=== PATIENT | female | born 1985 | race Hispanic/Latino ===

== ENCOUNTER 2025-01-14 03:32 | Emergency (ER) | payer OTHER, SELFPAY ==
[2025-01-14 03:32] VITALS: BP 130/91; PULSE 70; RESP 18; TEMP 36.9; O2SAT 100; BMI 22.4
--- NOTE | 2025-01-14 04:01 | CT_ITS ---
PROCEDURE: ABDOMEN/PELVIS W IV CONT ONLY 01/14/2025 REASON FOR EXAM: ABDOMINAL PAIN TECHNIQUE: Procedure Code: CTABDPELIV Modality: CT Procedure: ABDOMEN/PELVIS W IV CONT ONLY Coronal and Sagittal reconstruction series were provided. CONTRAST: OMNIPAQUE 350 VOLUME: 100 mL One or more dose reduction techniques were used (e.g., Automated exposure control, adjustment of the mA and/or kV according to patient size, use of iterative reconstruction technique. RADIATION DOSE SUMMARY: CTDlvol: 8.36 mGy DLP: 405 mGycm COMPARISON: None. FINDINGS: Bilateral breast prostheses are noted. Diffuse thickening of the bladder, probably cystitis. Diffuse thickening of the stomach suggestive of gastritis. Mild thickening of the proximal small bowels, probably enteritis. Mild thickening of the rectosigmoid colon, probably underdistention/spasm. Subhepatic anterior calcified mesenteric lymph node measuring 1.2 cm. The visualized lung bases are unremarkable. Normal liver. Normal gallbladder and extrahepatic biliary system. Normal spleen. Normal pancreas. Normal bilateral adrenal glands. Normal size of the right kidney. There is no right renal mass. There are no right renal calculi. There is no right hydronephrosis. Normal visualized right ureter. Normal size of the left kidney. There is no left renal mass. There are no left renal calculi. There is no left hydronephrosis. Normal visualized left ureter. The appendix is not visualized. There is no demonstrated peritoneal fluid. Normal abdominal aorta. Normal inferior vena cava. Normal retroperitoneum. There is no pelvic mass lesion or lymphadenopathy. There is no pelvic fluid. Normal abdominal wall. Normal osseous structures. CT/Abdomen/Pelvis W IV Cont ONLY IMPRESSION: Bilateral breast prostheses are noted. Diffuse thickening of the bladder, probably cystitis. Diffuse thickening of the stomach suggestive of gastritis. Mild thickening of the proximal small bowels, probably enteritis. Mild thickening of the rectosigmoid colon, probably underdistention/spasm. Subhepatic anterior calcified mesenteric lymph node measuring 1.2 cm. Reading Location: [place] [id number]
[2025-01-14] MEDS: 0.9% Normal Saline (1000mL) 1,000 ML 999 ML IV (04:10)
[2025-01-14 04:11] LABS: Hematocrit 42.4 % (37-47); Hemoglobin 14.6 g/dL (12.0-15.0); Immature Granulocytes Count 0.030 X10^3/uL (0.0-0.0); Mean Corp Hgb Conc 34.4 g/dL (32-36); Mean Corpuscular Volume 89.8 fL (81-99); Mean Platelet Vol. 9.9 fl (6.2-12.0); NRBC Flagged by Analyzer 0 % (0-5); POSITIVE MORPHOLOGY YES; Platelet Count 331 K/mm3 (150-450); RBC Distribution Width CV 12.5 % (11.6-14.6); RBC Distribution Width SD 41.6 fl (35.1-43.9); Red Blood Count 4.72 M/mm3 (4.2-5.4); White Blood Count 10.9 K/mm3 (4.4-11.0)
[2025-01-14 04:19] LABS: Differential Indicated SCAN CRITERIA MET
[2025-01-14 04:28] LABS: AST(SGOT) 18 U/L (<=31); Alanine Aminotransfer ALT/SGPT 9 U/L (<=34); Albumin, Serum 4.2 g/dL (3.5-5.0); Alkaline Phosphatase 51 U/L (35-104); Anion Gap 15 (5-15); BUN 7 mg/dL (4-19); BUN/Creat Ratio 9.6 RATIO (10-20); Calcium,Total 9.2 mg/dL (7.6-11.0); Carbon Dioxide 20.0 mmol/L (21.0-32.0); Chloride 103 mmol/L (98-108); Estimated Creatinine Clearance 92.65 ml/min (50-250); Globulin 2.7 g/dL (2.2-4.2); Glucose 116 mg/dL (70-99); Lipase 18 U/L (13-75); Potassium 3.5 mmol/L (3.3-5.1)
[2025-01-14 04:51] LABS: Internal QC Validated? YES +Cl - CLEAR BKGD; Pregnancy, Serum, hCG Quali. NEGATIVE Negative
[2025-01-14 05:08] LABS: Mucous, Urine 0 SEEN /hpf (<or=2+); Red Blood Cells-Urine 0 SEEN /hpf (0-5); Squamous Epithelial Cells - UA 0 SEEN /hpf (5-10)
[2025-01-14 05:22] LABS: Glucose, Dipstick Normal (Normal); Ketone-Dipstick Negative (Negative); Leukocyte Esterase-Dipstick Negative /ul (Negative); Nitrite-Dipstick Negative (Negative); Occult Blood-Urine 25 /ul (Negative); Protein-Dipstick Negative (Negative); Specific Gravity, Urine 1.010 (1.002-1.030); Urine Bilirubin Dipstick Negative (Negative)
[2025-01-14 05:37] VITALS: BP 120/79; PULSE 66; RESP 16; O2SAT 100
[2025-01-14 05:46] LABS: Color, Urine Yellow (Yellow)
[2025-01-14 06:28] VITALS: BP 140/82; PULSE 62; RESP 16; TEMP 36.7; O2SAT 100
--- NOTE | 2025-01-14 06:31 | EDS_ITS ---
HPI History of Present Illness Chief Complaint: Abd Pain Narrative Narrative: Patient was seen and examined after presenting to ED for abdominal pain in center of her upper abdomen she feels nauseous denies having any fevers or chills. PFSH PFSH Medical History no medical history Home Medications ?Medication ?Instructions ?Recorded ?Last Taken ?Type bisacodyl 5 mg tablet,delayed 5 mg PO QHS 2 days #4 ta bs 01/14/25 Unknown Rx release (Dulcolax (bisacodyl)) liothyronine 5 mcg tablet (Cytomel) 15 mcg PO DAILY Unknown History norgestimate 0.25 mg-ethinyl 1 tab PO DAILY 01/14/25 U nknown History estradiol 0.035 mg tablet (Estarylla) polyethylene glycol 3350 17 17 g PO DAILY #238 grams 1 03/17/24 Unknown Rx gram/dose oral powder (Miralax) Allergy/AdvReac Type Severity Reaction Status Date / Time No Known Allergies Allergy Verified 01/14/25 03:36 Social History Smoking Status: Never smoker ROS ROS ED ROS Narrative Pertinent Positives: Nausea upper abdominal pain she has one of her ovaries removed Pertinent Negatives: Fevers diarrhea black or bloody stool, chest pain pressure shortness of breath urinary symptoms The remainder of review of systems negative unless otherwise stated in the HPI above. Systems reviewed including constitutional, psychiatric, cardiovascular, respiratory, integument, HENT, gastrointestinal. EXAM Physical Exam Narrative Exam Narrative: Patient is afebrile hemodynamically stable does not appear toxic or in distress she is normocephalic and atraumatic normal heart lung sounds abdomen is soft nondistended seems to have more epigastric and right upper quadrant abdominal pain no overlying hernias or skin changes. Intact and equal MSPs in her extremities Const Vital Signs: 01/14/25 03:32 01/14/25 05:37 01/14/25 06:28 Temperature 98.4 F 98.1 F Temperature Source Oral Pulse Rate 70 66 62 Respiratory Rate 18 16 16 Blood Pressure 130/91 H 120/79 140/82 H Blood Pressure Mean 104 92 101 Pulse Ox 100 100 100 Oxygen Delivery Method Room Air Room Air MDM MDM MDM Narrative Medical decision making narrative: Nursing notes, triage notes, available previous documentation, and vital signs were reviewed. Any discrepancies noted were addressed. Differential Diagnoses: Could be cholecystitis pancreatitis gastroenteritis constipation lower suspicion for appendicitis or diverticular disease or mesenteric ischemia or urinary etiology or aortic etiology Interventions: Morphine Zofran Fluids Given: 1 L normal saline Labs Reviewed: No leukocytosis leukopenia anemia electrolyte abnormality of significance renal insufficiency transaminitis lipase is 18 she is not Imaging Reviewed: Personally reviewed and interpreted by me: CT abdomen and pelvis I see of fairly moderate to large stool burden official interpretation by radiologist says that she has some diffuse thickening of the bladder as well as the stomach that could be consistent with gastritis seen with the proximal small bowel which could be more of an enteritis picture Previous Documentation Reviewed: None available or applicable at this time. ED Course: Patient presenting with symptoms as stated above her workup rather unremarkable although signs of gastritis and enteritis on her CT but she also is appearing to be constipated so I did write her a cleanout regimen and provide her medications for this at this point in time return precautions follow-up recommendations provided patient stable for discharge home. This note was made utilizing voice recognition software. All attempts were made to correct spelling or other errors prior to note completion. However, due to the fast-paced nature of emergency medicine, some errors may still be present. Lab Data Labs: Laboratory Results - last 24 hr 01/14/25 01/14/25 01/14/25 03:55 04:15 05:00 WBC 10.9 RBC 4.72 Hgb 14.6 Hct 42.4 MCV 89.8 MCH 30.9 MCHC 34.4 RDW Std Deviation 41.6 RDW Coeff of Sarah 12.5 Plt Count 331 MPV 9.9 Immature Gran % (Auto) 0.300 Neut % (Auto) 65.3 Lymph % (Auto) 25.0 [place] % (Auto) 7.2 Eos % (Auto) 1.6 Baso % (Auto) 0.6 Absolute Neuts (auto) 7.1 Absolute Lymphs (auto) 2.73 Nucleated RBC % 0 Atypical Lymphocytes 3+ Sodium 138 Potassium 3.5 Chloride 103 Carbon Dioxide 20.0 L Anion Gap 15 BUN 7 Creatinine 0.69 L Estim Creat Clear Calc 92.65 Est GFR (MDRD) Non-Af 112 BUN/Creatinine Ratio 9.6 L Glucose 116 H Calcium 9.2 Total Bilirubin 0.32 AST 18 ALT 9 Alkaline Phosphatase 51 Total Protein 6.9 Albumin 4.2 Globulin 2.7 Albumin/Globulin Ratio 1.6 Lipase 18 Serum , Qual NEGATIVE Urine Color Yellow Urine Clarity Clear Urine pH 7.0 Ur Specific [place] 1.010 Urine Protein Negative Urine Glucose (UA) Normal Urine Ketones Negative Urine Occult Blood 25 H Urine Nitrite Negative Urine Bilirubin Negative Urine Urobilinogen Normal Ur Leukocyte Esterase Negative Urine RBC 0 SEEN Urine WBC 0 SEEN Ur Squamous Epith Cells 0 SEEN Urine Bacteria 0 SEEN Urine Mucus 0 SEEN Radiography Diagnostic Testing: Clinical Impression(s) from Imaging Studies Abdomen/Pelvis CT 01/14/25 04:01 IMPRESSION: Bilateral breast prostheses are noted. Diffuse thickening of the bladder, probably cystitis. Diffuse thickening of the stomach suggestive of gastritis. Mild thickening of the proximal small bowels, probably enteritis. Mild thickening of the rectosigmoid colon, probably underdistention/spasm. Subhepatic anterior calcified mesenteric lymph node measuring 1.2 cm. Reading Location: [place] [address] Discharge Plan Triage Chief Complaint: Abd Pain ED Provider: Thomas Linares Dx/Rx/DC Orders Clinical Impression: Abdominal pain, Enteritis, Constipation Prescriptions: New polyethylene glycol 3350 [Miralax] 17 gram/dose powder 17 g PO DAILY Qty: 238 0RF bisacodyl [Dulcolax (bisacodyl)] 5 mg tablet,delayed release (DR/EC) 5 mg PO QHS 2 Days Qty: 4 0RF No Action norgestimate-ethinyl estradiol [Estarylla] 0.25-0.035 mg tablet 1 tab PO DAILY liothyronine [Cytomel] 5 mcg tablet 15 mcg PO DAILY Primary Care Provider: Care Physician,No Primary Referrals: Care Physician,No Primary [Primary Care Provider, Medical] Activity Restrictions/Additional Instructions: Be sure to follow-up with your primary care doctor. I am prescribing you medications I do not want you to take them as they are listed on the prescription itself but I want you to take them as follows and these very specific instructions Morning of MiraLAX Cleanout When you wake up: - Begin a liquid diet. (See list below for suggestions.) - Take 2 Dulcolax (bisacodyl) tablets. (DO NOT CHEW.) - Begin MiraLAX on a daily basis per instructions 1 hour after waking up: - Mix the entire 238-gram bottle of MiraLAX with 64 ounces of a sports drink. - Drink all of the mixture over the next few hours until gone. (Suggestion: An 8-ounce glass every 15-30 minutes equals 2-4 hours.) - It is very important to drink plenty of water and other liquids in order to avoid dehydration and to flush the bowel. (Although alcohol is a liquid, it can make you dehydrated. You should NOT drink alcohol while doing the cleanout.) - NOTE: Please stay home once you have started your cleanout. Also, the use of moist towelettes or wipes may help to minimize discomfort during the cleanout. A nonprescription 1% hydrocortisone cream may also be soothing when applied to the rectal area after each bowel movement. - It is common during the cleanout to experience some nausea, bloating, and/or abdominal distention. If you chilled the mixture prior to drinking it, you could experience chills from consuming so much cold liquid in a short time period. If you develop nausea or vomiting, slow down the rate at which you drink the solution. Please attempt to drink all of the laxative solution even if it takes you longer. Once stooling slows down, you may resume eating solid food. Liquid Diet - Juices - Coffee and Tea - Powdered Drinks - Water/Vitamin Water - Diet/Regular Sodas - Sports Drinks - Popsicles - Jell-O - Broths or Bouillon - Ensure or Boost Print Language: Luxembourgish Disposition Disposition: Home, Self Care Discharge Date/Time: 01/14/25 06:30
== END 2025-01-14 06:30 | disposition home or self-care (01) ==
PROVIDERS: Emergency Provider Specialist/Technologist Athletic Trainer; Visit Provider Specialist/Technologist Athletic Trainer
DX: R10.10 Upper abdominal pain, unspecified (principal); K52.9 Noninfective gastroenteritis and colitis, unspecified; K59.00 Constipation, unspecified
CPT/HCPCS: 74177; 80053; 81001; 83690; 84703; 85025; 96361; 96374; 96375; 96376; 99284; Q9967; A4216; J2405

== ENCOUNTER 2025-01-24 19:41 | Emergency (ER) | payer OTHER, SELFPAY ==
[2025-01-24] VITALS (7 sets, daily range): BP systolic 112–129; BP diastolic 68–80; PULSE 73; RESP 18; TEMP 36.4; O2SAT 97–100; BMI 21.5
[2025-01-24 20:10] LABS: Mucous, Urine 0 SEEN /hpf (<or=2+); Squamous Epithelial Cells - UA 0 SEEN /hpf (5-10)
[2025-01-24 20:12] LABS: Glucose, Dipstick Normal (Normal); Ketone-Dipstick Negative (Negative); Leukocyte Esterase-Dipstick Negative /ul (Negative); Nitrite-Dipstick Negative (Negative); Occult Blood-Urine 25 /ul (Negative); Protein-Dipstick 15 mg/dl (Negative); Specific Gravity, Urine 1.010 (1.002-1.030); Urine Bilirubin Dipstick Negative (Negative)
[2025-01-24 20:16] LABS: Color, Urine Yellow (Yellow)
[2025-01-24 20:19] LABS: Red Blood Cells-Urine 0-5 SEEN /hpf (0-5)
[2025-01-24 20:23] LABS: Hematocrit 41.7 % (37-47); Hemoglobin 14.9 g/dL (12.0-15.0); Immature Granulocytes Count 0.020 X10^3/uL (0.0-0.0); Mean Corp Hgb Conc 35.7 g/dL (32-36); Mean Corpuscular Volume 89.7 fL (81-99); Mean Platelet Vol. 9.7 fl (6.2-12.0); NRBC Flagged by Analyzer 0 % (0-5); Platelet Count 286 K/mm3 (150-450); RBC Distribution Width CV 12.3 % (11.6-14.6); RBC Distribution Width SD 40.8 fl (35.1-43.9); Red Blood Count 4.65 M/mm3 (4.2-5.4); White Blood Count 10.6 K/mm3 (4.4-11.0)
[2025-01-24 20:37] LABS: Lipase 20 U/L (13-75)
[2025-01-24 20:40] LABS: AST(SGOT) 26 U/L (<=31); Alanine Aminotransfer ALT/SGPT 12 U/L (<=34); Albumin, Serum 4.6 g/dL (3.5-5.0); Alkaline Phosphatase 50 U/L (35-104); Anion Gap 12 (5-15); BUN 7 mg/dL (4-19); BUN/Creat Ratio 9.9 RATIO (10-20); Calcium,Total 9.6 mg/dL (7.6-11.0); Carbon Dioxide 22.1 mmol/L (21.0-32.0); Chloride 100 mmol/L (98-108); Estimated Creatinine Clearance 90.04 ml/min (50-250); Globulin 2.9 g/dL (2.2-4.2); Glucose 101 mg/dL (70-99); Potassium 4.1 mmol/L (3.3-5.1)
[2025-01-24 20:58] LABS: Internal QC Validated? YES +Cl - CLEAR BKGD; Pregnancy, Serum, hCG Quali. NEGATIVE Negative
[2025-01-24] MEDS: 0.9% Normal Saline (1000mL) 1,000 ML 125 ML IV (21:07)
--- NOTE | 2025-01-24 21:27 | CT_ITS ---
PROCEDURE: ABDOMEN/PELVIS W IV CONT ONLY 01/24/2025 REASON FOR EXAM: ABDOMINAL PAIN, STATUS POST MULTIPLE ABDOMINAL COLLAZO TECHNIQUE: Procedure Code: CTABDPELIV Modality: CT Procedure: ABDOMEN/PELVIS W IV CONT ONLY Coronal and Sagittal reconstruction series were provided. CONTRAST: Isovue 370 VOLUME: 99 mL One or more dose reduction techniques were used (e.g., Automated exposure control, adjustment of the mA and/or kV according to patient size, use of iterative reconstruction technique. RADIATION DOSE SUMMARY: CTDlvol: 29+ 7 mGy DLP: 360 mGycm COMPARISON: 01/24/2025. FINDINGS: The lung bases are clear. Partially visualized bilateral breast implants. Normal caliber abdominal aorta. No suspicious lymphadenopathy. The liver, gallbladder, pancreas, spleen, adrenals are unremarkable. Symmetric enhancement of bilateral kidneys. No hydroureteronephrosis. The urinary bladder is unremarkable. Anteverted uterus. Normal caliber large and small bowel without surrounding inflammatory changes. CT/Abdomen/Pelvis W IV Cont ONLY IMPRESSION: No acute abnormalities of the abdomen or pelvis. Reading [facility] [place]
--- NOTE | 2025-01-24 22:31 | EX.ED.DYSGE1 ---
HPI History of Present Illness Chief Complaint: Abd Pain Detail of Chief Complaint: Epigastric abdominal pain. Informant: patient Onset/Context/Timing Onset: Days (10 days) Context: Sudden Onset Timing: Continuous and Waxes and wanes Quality: Pain Location: Epigastric Current Severity: Mild Maximum Severity: Severe Worsened by: Movement, eating, palpation Relieved by: Nothing Associated Symptoms Associated Symptoms: None Narrative Narrative: Patient is a 39-year-old woman. She has had multiple surgeries. She had surgery for perforation requiring resection of her bowel, abscess due to salpingitis and was seen on January 14. I was unaware of this. She had a CAT scan at that time which revealed bilateral proximal Deasis of her breast. Diffuse thickening of urinary bladder suggestive of cystitis. Evidence of gastritis and possible enteritis. She had mild thickening of the proximal small bowel. She also had mild thickening of the rectosigmoid colon which was probably due to underdistention and spasm. Patient presents because of severe pain. She denies fever, chills night sweats. She denies intolerance to greasy or fried foods. When she had something greasy on Wednesday it made the pain worse. She denies cardiac or respiratory symptoms. She does endorse nausea without vomiting or diarrhea. She denies black or maroon-colored stool. She denies any urologic symptoms. Patient reports compliance with her an acid medicine. Prior similar symptoms: No Recent Illness/Hospitalization: Yes PFSH [facility] Home Medications ?Medication ?Instructions ?Recorded ?Last Taken ?Type bisacodyl 5 mg tablet,delayed 5 mg PO QHS 2 days #4 tabs 01/14/25 Unknown Rx release (Dulcolax (bisacodyl)) liothyronine 5 mcg tablet (Cytomel) 15 mcg PO DAILY 01/14/25 Unknown History norgestimate 0.25 mg-ethinyl 1 tab PO DAILY 01/14/25 Unknown History estradiol 0.035 mg tablet (Estarylla) polyethylene glycol 3350 17 17 g PO DAILY #238 grams 01/14/25 Unknown Rx gram/dose oral powder (Miralax) Allergy/AdvReac Type Severity Reaction Status Date / Time No Known Allergies Allergy Verified 01/24/25 19:44 Social History Smoking Status: Never smoker ROS ROS ED Constitutional Constitutional ED: Denies chills, fever(s), subjective, sweats or weight loss ENT ENT ED: Denies ear pain or rhinorrhea Cardiovascular Cardiovascular: Denies chest pain, orthopnea, palpitations, paroxysmal nocturnal dyspnea or racing heartbeat Respiratory/Chest Respiratory/Chest: Denies cough, dyspnea, dyspnea on exertion, orthopnea or paroxysmal nocturnal dyspnea Gastrointestinal Gastrointestinal: Reports abdominal pain and nausea; Denies constipation, diarrhea, melena or vomiting Genitourinary Genitourinary ED: Denies dysuria, hematuria or urinary frequency Musculoskeletal Musculoskeletal: Denies arthralgias, back pain, myalgias or neck pain Integumentary Denies rash Neurologic Neurologic: Denies headache(s), paresthesias or weakness Endocrine Endocrinology: Denies cold intolerance or heat intolerance Hematologic/Lymphatic Hematologic/Lymphatic: Reports as per HPI; Denies systems reviewed and no addt'l complaints, except as documented EXAM Physical Exam Const Vital Signs: 01/24/25 19:42 01/24/25 21:55 01/24/25 21:56 Temperature 97.6 F L Temperature Source Temporal Pulse Rate 73 73 Respiratory Rate 18 Blood Pressure 120/68 112/71 Blood Pressure Mean 85 84 Pulse Ox 100 97 97 Oxygen Delivery Method Room Air Room Air 01/24/25 22:00 01/24/25 22:15 01/24/25 22:30 Temperature 97.6 F L Temperature Source Pulse Rate 73 Respiratory Rate 18 Blood Pressure 115/74 118/75 118/75 Blood Pressure Mean 86 89 89 Pulse Ox 100 100 Oxygen Delivery Method Positive well nourished and well developed General Appearance ED: well developed, NAD and pallor HEENT Reports moist mucous membranes Eyes PERRL and EOMs intact bilaterally Neck no lymphadenopathy, supple and no JVD Resp normal respiratory effort and clear to auscultation bilaterally Cardio regular rate, regular rhythm, S1 normal heart sound, S2 normal heart sound and no murmurs GI non-distended and no masses; Negative for normal to inspection, nondistended, normoactive bowel sounds, non-tender or hepatosplenomegaly GI Narrative: Abdomen is soft to firm. She has significant tenderness in the upper abdomen. She has multiple surgical scars that are well-healed. Abdomen is tympanitic. Bowel sounds are diminished. There is no inguinal lymphadenopathy or inguinal mass. There is no dermatologic lesions noted. Back/Spine no CVA tenderness Extremity normal to inspection Neuro oriented x3 and CN's II-XII intact bilaterally Sensorium / Orientation: alert Psych mental status grossly normal Skin no rashes or lesions noted, no wounds and skin turgor normal General Skin Exam: elasticity normal and pallor; Negative for jaundice MDM MDM MDM Narrative Medical decision making narrative: With patient have significant pain and multiple surgeries this may represent a early bowel obstruction versus infection and light of her having prior history of bowel resection. CAT scan from prior visit was reviewed as well as lab work. Will obtain CT and appropriate blood work. Blood work was ordered per nurse protocol. Lab Data Attestation: I reviewed the patient's lab results. Lab results narrative: CBC is normal. Basic metabolic panel with slight elevation of glucose of 101. Hepatic profile normal. Urinalysis negative. Serum test negative. Lactic acid less than 1. Labs: Laboratory Results - last 24 hr 01/24/25 01/24/25 01/24/25 19:52 20:00 20:45 WBC 10.6 RBC 4.65 Hgb 14.9 Hct 41.7 MCV 89.7 MCH 32.0 MCHC 35.7 RDW Std Deviation 40.8 RDW Coeff of Sarah 12.3 Plt Count 286 MPV 9.7 Immature Gran % (Auto) 0.200 Neut % (Auto) 60.8 Lymph % (Auto) 29.7 [place] % (Auto) 8.6 Eos % (Auto) 0.5 Baso % (Auto) 0.2 Absolute Neuts (auto) 6.5 Absolute Lymphs (auto) 3.15 Nucleated RBC % 0 Sodium 135 Potassium 4.1 Chloride 100 Carbon Dioxide 22.1 Anion Gap 12 BUN 7 Creatinine 0.71 Estim Creat Clear Calc 90.04 Est GFR (MDRD) Non-Af 109 BUN/Creatinine Ratio 9.9 L Glucose 101 H Lactic Acid Calcium 9.6 Total Bilirubin 0.64 AST 26 ALT 12 Alkaline Phosphatase 50 Total Protein 7.5 Albumin 4.6 Globulin 2.9 Albumin/Globulin Ratio 1.6 Lipase 20 Serum , Qual NEGATIVE Urine Color Yellow Urine Clarity Clear Urine pH 6.5 Ur Specific [place] 1.010 Urine Protein 15 H Urine Glucose (UA) Normal Urine Ketones Negative Urine Occult Blood 25 H Urine Nitrite Negative Urine Bilirubin Negative Urine Urobilinogen Normal Ur Leukocyte Esterase Negative Urine RBC 0-5 SEEN Urine WBC 0 SEEN Ur Squamous Epith Cells 0 SEEN Urine Bacteria 0 SEEN Urine Mucus 0 SEEN 01/24/25 21:00 WBC RBC Hgb Hct MCV MCH MCHC RDW Std Deviation RDW Coeff of Sarah Plt Count MPV Immature Gran % (Auto) Neut % (Auto) Lymph % (Auto) [place] % (Auto) Eos % (Auto) Baso % (Auto) Absolute Neuts (auto) Absolute Lymphs (auto) Nucleated RBC % Sodium Potassium Chloride Carbon Dioxide Anion Gap BUN Creatinine Estim Creat Clear Calc Est GFR (MDRD) Non-Af BUN/Creatinine Ratio Glucose Lactic Acid < 1.0 Calcium Total Bilirubin AST ALT Alkaline Phosphatase Total Protein Albumin Globulin Albumin/Globulin Ratio Lipase Serum , Qual Urine Color Urine Clarity Urine pH Ur Specific [place] Urine Protein Urine Glucose (UA) Urine Ketones Urine Occult Blood Urine Nitrite Urine Bilirubin Urine Urobilinogen Ur Leukocyte Esterase Urine RBC Urine WBC Ur Squamous Epith Cells Urine Bacteria Urine Mucus Radiography Diagnostic Testing: Clinical Impression(s) from Imaging Studies Abdomen/Pelvis CT 01/24/25 21:27 IMPRESSION: No acute abnormalities of the abdomen or pelvis. Reading Location[place] [facility] [place] Treatment and Re-Evaluation :: The patient was reevaluated she had marked reduction of her pain. She was medicated with IV morphine and IV Zofran. Discharge Plan Triage Chief Complaint: Abd Pain ED Provider: Mayco Lees Dx/Rx/DC Orders Clinical Impression: Acute epigastric pain, Nausea Instructions: ED Epigastric Pain Uncertain Cause Prescriptions: No Action norgestimate-ethinyl estradiol [Estarylla] 0.25-0.035 mg tablet 1 tab PO DAILY liothyronine [Cytomel] 5 mcg tablet 15 mcg PO DAILY polyethylene glycol 3350 [Miralax] 17 gram/dose powder 17 g PO DAILY Qty: 238 0RF bisacodyl [Dulcolax (bisacodyl)] 5 mg tablet,delayed release (DR/EC) 5 mg PO QHS 2 Days Qty: 4 0RF Primary Care Provider: Gloria Almanzar NP Referrals: Gloria Almanzar NP, [facility] [Primary Care Provider, Gynecology] - Keep Autumn appointment Print Language: Tamazight Disposition Disposition: Home, Self Care
--- NOTE | 2025-01-24 22:49 | ED.RN ---
Pt requests another dose of pain meds prior to discharge. This RN spoke with Dr. Lees, no meds to be given at this time, pt agreeable.
== END 2025-01-24 22:50 | disposition home or self-care (01) ==
PROVIDERS: Emergency Provider Emergency Medicine; PCP Nurse Practitioner Family; Visit Provider Emergency Medicine
DX: R10.13 Epigastric pain (principal); R11.0 Nausea
CPT/HCPCS: 74177; 80053; 81001; 83605; 83690; 84703; 85025; 96361; 96374; 96375; 99285; Q9967; A4216; J2405